=== PATIENT | male | born 2000 | race African-American/Black ===

== ENCOUNTER 2019-07-11 16:36 | Emergency (ER) | payer OTHER ==
[~2019-07-11] VITALS: Ht 172.7 cm; Wt 75.1 kg
[2019-07-11 16:37] VITALS: BP 125/67
[2019-07-11] MEDS ORDERED: CYCLOBENZAPRINE 10 MG TAB PO ONE (17:15)
[2019-07-11] MEDS ORDERED: NAPROXEN 250 MG TAB PO ONE (17:15)
[2019-07-11] MEDS ORDERED: NAPR-837 PO (17:39)
[2019-07-11] MEDS ORDERED: CYCL10TA PO (17:39)
== END 2019-07-11 17:45 | disposition home or self-care (01) ==
LOC: M ED 16:36
DX: S29.012A Strain of muscle and tendon of back wall of thorax, initial encounter (principal); X58.XXXA Exposure to other specified factors, initial encounter; Y92.89 Other specified places as the place of occurrence of the external cause; Z88.0 Allergy status to penicillin